=== PATIENT | male | born 1965 | race Native Hawaiian/Other Pacific Islander ===

== ENCOUNTER 2018-05-24 12:41 | Emergency (ER) | payer OTHER ==
[~2018-05-24] VITALS: Ht 167.6 cm; Wt 63.5 kg
[~2018-05-24 12:41] MED LIST: METHADONE40 MG OR; TRAZ100T OR
[2018-05-24 12:46] VITALS: BP 132/75; TEMP 98.3
== END 2018-05-24 14:08 | disposition home or self-care (01) ==
LOC: ED 12:41
DX: R10.30 Lower abdominal pain, unspecified (principal); R11.0 Nausea; R30.0 Dysuria
CPT/HCPCS: 99281

== ENCOUNTER 2018-05-24 16:51 | Emergency (ER) | payer OTHER ==
[~2018-05-24] VITALS: Ht 167.6 cm; Wt 63.5 kg
[2018-05-24 17:10] VITALS: TEMP 97.3
[2018-05-24 19:32] LABS: PLATELET COUNT 337 K/uL (142-355)
[2018-05-24 19:38] LABS: POTASSIUM 4.3 mmol/L (3.6-5.2)
[2018-05-24 21:35] VITALS: BP 177/89
== END 2018-05-24 21:35 | disposition home or self-care (01) ==
LOC: ED 16:51
PROVIDERS: Family Medicine
DX: N20.0 Calculus of kidney (principal); N13.9 Obstructive and reflux uropathy, unspecified; X50.0XXA Overexertion from strenuous movement or load, initial encounter
CPT/HCPCS: 80053; 81000; 85027; 96374; 96375; 99284; J1885; J2405

== ENCOUNTER 2019-09-24 13:33 | Emergency (ER) | payer OTHER ==
[~2019-09-24] VITALS: Ht 167.6 cm; Wt 63.5 kg
[2019-09-24 13:59] LABS: PLATELET COUNT 429 K/uL (142-355)
[2019-09-24 14:04] LABS: POTASSIUM 3.5 mmol/L (3.6-5.2); SODIUM 136 mmol/L (136-145)
[2019-09-24 14:44] LABS: PARTIAL THROMBOPLASTIN TIME 23.6 SECONDS (24.5-33.6)
[2019-09-24] MEDS ORDERED: GABA300C2 PO (19:54)
[2019-09-25 10:30] VITALS: BP 110/58; TEMP 98.3
== END 2019-09-25 13:50 | disposition other institution (70) ==
LOC: ED 13:33
PROVIDERS: Hospitalist
DX: F19.10 Other psychoactive substance abuse, uncomplicated (principal); F25.9 Schizoaffective disorder, unspecified; R00.0 Tachycardia, unspecified
CPT/HCPCS: 36600; 80053; 80307; 80320; 80329; 81000; 82550; 82805; 83880; 84484; 85027; 85610; 85730; 93005; 96360; 96372; 96375; 99285

== ENCOUNTER 2020-12-12 09:52 | Emergency (ER) | payer OTHER ==
[~2020-12-12] VITALS: Ht 167.6 cm; Wt 59.0 kg
[~2020-12-12 09:52] MED LIST changes: +GABA300C2 PO
[2020-12-12 10:45] LABS: PLATELET COUNT 262 K/uL (142-355)
[2020-12-12 11:10] LABS: POTASSIUM 4.5 mmol/L (3.6-5.2); SODIUM 136 mmol/L (136-145)
[2020-12-12 11:47] VITALS: BP 138/76; TEMP 98.3
== END 2020-12-12 11:47 | disposition home or self-care (01) ==
LOC: ED 09:52
PROVIDERS: Family Medicine
DX: K21.9 Gastro-esophageal reflux disease without esophagitis (principal); R07.89 Other chest pain
CPT/HCPCS: 80053; 81000; 82550; 84484; 85027; 93005; 99283

== ENCOUNTER 2022-03-24 10:27 | Emergency (ER) | payer OTHER ==
[~2022-03-24] VITALS: Ht 167.6 cm; Wt 59.0 kg
[2022-03-24 10:43] VITALS: TEMP 98.2
[2022-03-24 11:50] VITALS: BP 125/38
== END 2022-03-24 11:51 | disposition home or self-care (01) ==
LOC: ED 10:27
DX: S91.332A Puncture wound without foreign body, left foot, initial encounter (principal); W45.0XXA Nail entering through skin, initial encounter; Y92.098 Other place in other non-institutional residence as the place of occurrence of the external cause
CPT/HCPCS: 90471; 90715; 99282

== ENCOUNTER 2022-05-21 13:43 | Emergency (ER) | payer OTHER ==
[~2022-05-21] VITALS: Ht 167.6 cm; Wt 59.0 kg
[2022-05-21 13:43] VITALS: TEMP 98
[2022-05-21 14:03] LABS: PLATELET COUNT 375 K/uL (142-355)
[2022-05-21 14:16] LABS: POTASSIUM 3.6 mmol/L (3.6-5.2)
[2022-05-21 14:26] LABS: PARTIAL THROMBOPLASTIN TIME 23.2 SECONDS (24.5-33.6)
[2022-05-21 15:08] VITALS: BP 122/84
== END 2022-05-21 15:17 | disposition home or self-care (01) ==
LOC: ED 13:43
PROVIDERS: Emergency Medicine
DX: T40.2X1A Poisoning by other opioids, accidental (unintentional), initial encounter (principal); F11.10 Opioid abuse, uncomplicated; F15.10 Other stimulant abuse, uncomplicated; F43.10 Post-traumatic stress disorder, unspecified; X58.XXXA Exposure to other specified factors, initial encounter; Y92.89 Other specified places as the place of occurrence of the external cause
CPT/HCPCS: 80053; 80143; 80307; 80320; 82550; 84484; 85027; 85610; 85730; 93005; 96360; 96374; 99284; J2405